=== PATIENT | female | born 1955 | race Caucasian/White ===

== ENCOUNTER 2018-02-12 06:22 | Inpatient (IN) ==
[2018-02-12] MEDS ORDERED: Sodium Chlor 0.9% Inj 250 ML ONE (07:06)
[2018-02-12] MEDS ORDERED: Chlorhexidine Gluconate 2% 1 Pack (2 Cloths) TOPICAL ONE (07:13)
[2018-02-12] MEDS ORDERED: Metoprolol Tartrate 25 MG Tablet PO ONE (07:13)
[2018-02-12] MEDS ORDERED: Sodium Chloride 0.9% 2 ML Flush PRN IV.FLUSH (07:38)
[2018-02-12] MEDS: Sod Chloride 0.9% Inj 1,000 ML IV.SIG SCH ×2 (07:41→17:10)
[2018-02-12] MEDS ORDERED: Thrombin Topical Soln 5,000 UNIT Vial TOPICAL ONE (07:45)
[2018-02-12] MEDS ORDERED: Gelatin Size 100 Topical Foam ONE (07:45)
[2018-02-12] MEDS ORDERED: Bupivacaine/Epinephrine PF Inj 0.5% 30 ML Vial ONE (07:45)
[2018-02-12] MEDS ORDERED: ceFAZolin 1 GM Premix Inj 0 GM/0 ML PIGGYBACK IV.SIG ONE (07:45)
[2018-02-12] MEDS ORDERED: Sodium Chlor 0.9% Inj 500 ML IV.SIG ONE (08:00)
[2018-02-12] MEDS ORDERED: Vancomycin Inj 1,000 MG in Sodium Chlor 0.9% Inj 250 ML IV.SIG SCH (08:00)
[2018-02-12] MEDS ORDERED: Chlorhexidine Gluconate 2% 1 Pack (2 Cloths) TOPICAL SCH (09:00)
[2018-02-12] MEDS ORDERED: Propofol Inj 500 MG/50 ML Vial ONE ×2 (11:31→12:32)
[2018-02-12] MEDS ORDERED: fentaNYL Citrate Inj 250 MCG/5 ML Ampul ONE (11:31)
[2018-02-12] MEDS ORDERED: Clindamycin Inj 600 MG/4 ML Vial ONE (13:14)
[2018-02-12] MEDS ORDERED: Bupivacaine Liposomal PF 1.3% Inj 20 ML Vial ONE (14:27)
[2018-02-12] MEDS ORDERED: Morphine Inj 4 MG/ML Vial IV.PUSH PRN (15:42)
[2018-02-12] MEDS ORDERED: Bisacodyl 10 MG Supp RECTAL PRN (15:42)
[2018-02-12] MEDS ORDERED: HYDROmorphone PCA Inj 6 MG/30 ML PCA.VIAL PCA PRN (15:50)
[2018-02-12] MEDS ORDERED: Naloxone Inj 0.4 MG/ML Vial IV.PUSH PRN (15:50)
[2018-02-12] MEDS ORDERED: Morphine Inj 4 MG/ML Vial ONE ×2 (16:04)
[2018-02-12] MEDS ORDERED: *morphine SULFATE 10 MG/ML PERIprocedure ONLY ONE (16:06)
--- NOTE | 2018-02-12 16:27 | P.CONIM ---
History of Present Illness Primary Care Provider: Brenda Molina MD History of Present Illness: Pt is 62 yo with htn admitted today for L4/5 lami/ fusion with Dr Cornejo. I am seeing pt in [place]. She just recieved dose of morphine and says it is helping. her spb is 97 and she is resting. She had no other complaints and oxygenating well. PMH: htn hyperlipidemia hypothyroidism gerd prediabetes lumbar radiculopathy. hysterectomy abdomen LON shoulder surgery SH; no etoh/tob FH; [place] [facility] Social History Social History Substance History: No History of Abuse Second Hand Smoke Exposure: No Smoking Status: Never smoker How Often Do You Have a Drink Containing Alcohol: Monthly or less Recent Travel in [place] within the Last 8 Weeks: No Recent Out of Country Travel within the Last 8 Weeks: No Medications and Allergies Allergies Allergy/AdvReac Type Severity Reaction Status Date / Time diphenhydramine Allergy Severe Hives Verified 02/12/18 07:10 [From Triaminic Allergy] penicillin G Allergy Severe Hives Verified 02/12/18 07:10 amoxicillin Allergy Hives Verified 02/12/18 07:10 Home Medications Medication Instructions Recorded Confirmed Type cholecalciferol (vitamin D3) 1,000 unit PO DAILY 02/10/18 02/12/18 History [Vitamin D3] hydrochlorothiazide 12.5 mg PO DAILY 02/10/18 02/12/18 History hydrocodone-acetaminophen 1 tab PO Q6H PRN 02/10/18 02/12/18 History lisinopril 20 mg PO DAILY 02/10/18 02/12/18 History simvastatin 20 mg PO QPM 02/10/18 02/12/18 History Active Medications: Active Medications Hydrocodone Bitart/Acetaminophen ([place] 10/325) 1 tab PO Q4H PRN PRN Reason: Pain Scale 1 To 5 Al Hydroxide/Mg Hydroxide (Milk Of Magnesia Liq) 30 ml PO Q12H PRN PRN Reason: Mild Constipation Bisacodyl (Dulcolax Supp) 10 mg RECTAL DAILY PRN PRN Reason: SEVERE CONSITIPATION Chlorhexidine Gluconate (Chlorhexidine 2% Cloth) 1 pack TOPICAL DAILY [facility] Stop: 02/14/18 08:59 Gabapentin (Neurontin) 300 mg PO BID [facility] Hydrochlorothiazide (Microzide) 12.5 mg PO DAILY [facility] Lactated Ringer's (Lr 1000 Ml Inj) 1,000 mls @ 30 mls/hr IV.SIG .Q24H [facility] Stop: 02/13/18 07:14 Last Admin: 02/12/18 07:40 Dose: 30 mls/hr Sodium Chloride (Ns Inj) 500 mls @ 30 mls/hr IV.SIG .Q10H [facility] Stop: 02/13/18 00:39 Sodium Chloride (Ns Inj) 1,000 mls @ 30 mls/hr IV[facility]SIG .Q24H [facility] Last Admin: 02/12/18 07:41 Dose: Not Given Vancomycin HCl 1,000 mg/ (Sodium Chloride) 250 mls @ 250 mls/hr IV.SIG 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 [facility] Stop: 02/15/18 07:59 Last Infusion: 02/12/18 08:40 Dose: Infused Vancomycin HCl 1,000 mg/ (Sodium Chloride) 250 mls @ 250 mls/hr IV.SIG Q12H [facility] Stop: 02/13/18 08:59 Hydromorphone/Sodium Chloride (Dilaudid Floor Director Inj) 6 mg in 30 mls @ 0 mls/hr RAILS DEVELOPER UNSCH PRN PRN Reason: prn pain Lactulose (Lactulose Liq) 30 ml PO DAILY PRN PRN Reason: SEVERE CONSITIPATION Lisinopril (Prinivil) 20 mg PO DAILY [facility] Morphine Sulfate (Morphine Inj) 2 mg IV.PUSH Q2H PRN PRN Reason: Pain Scale 1 to 6 Naloxone HCl (Narcan Inj) 0.4 mg IV.PUSH PRN PRN PRN Reason: SEE LABEL COMMENTS Pravastatin Sodium (Pravachol) 40 mg PO DAILY@1800 [facility] Senna/Docusate Sodium (Sania-Colace) 1 tab PO BID [facility] Sennosides (Senokot) 17.2 mg PO Q12H PRN PRN Reason: Moderate Constipation Sodium Chloride (Ns Flush) 2 ml IV.FLUSH BID [facility] Sodium Chloride (Ns Flush) 2 ml IV.FLUSH PRN PRN PRN Reason: FLUSH AFTER USING IV ACCESS Vitamin D (Vitamin D3) 1,000 unit PO DAILY [facility] Physical Exam Vital signs: Last Vital Signs Temp 98.4 F 02/12/18 07:13 Pulse 82 02/12/18 07:13 Resp 16 02/12/18 07:13 BP 120/74 02/12/18 07:13 Pulse Ox 97 02/12/18 07:13 Narrative: awakens. sleepy. oriented. following commands heart reg lung cta abd s/nt ext no edema lumbar bandage with candice drain pope cath. Assessment and Plan Assessment (1) Status post lumbar surgery: Code(s): Z98.890 - Other specified postprocedural states Status: Acute Plan 1. s/p L4/5 Lami/fusion 02/12 2. htn 3. hyperlipidemia discussed with Dr Clemente faustin dc Thursday dvt prophylaxis prn pain control PT daily hold bp meds as needed will follow over the weekend.
--- NOTE | 2018-02-12 16:34 | XR ---
EXAM DATE: 02/12/2018 4:30 PM EST AGE/SEX: 62 years / Female INDICATIONS: Fusion L4,L5 with screws and rods. CLINICAL DATA: This is the patient's initial encounter. Patient reports that signs and symptoms have been present for 1 day and indicates a pain score of Nonresponsive. MEDICAL/SURGICAL HISTORY: None. None. COMPARISON: No prior exams available for comparison. FINDINGS: Patient is status post lumbar spinal surgery with fusion L4-5. There is good position and alignment o f the lower lumbar spine and fusion. The hardware is grossly intact. CONCLUSION: Good position and alignment on this postoperative study. Electronically signed by: Kobi Ibarra MD Board Certified Radiologist 02/12/2018 4:33 PM EST
[2018-02-12] MEDS ORDERED: *morphine SULFATE 4 MG/ML PERIprocedure ONLY ONE (16:36)
[2018-02-12] MEDS: Sodium Chloride 0.9% 2 ML Flush BID IV.FLUSH SCH ×2 (19:50→21:05)
[2018-02-12] MEDS ORDERED: Influenza (Quadrivalent) Vaccine 0.5 ML Syringe IM ONE (20:00)
[2018-02-12] MEDS: Gabapentin 300 MG Capsule PO SCH (20:49)
[2018-02-12] MEDS: Senna/Docusate Sodium 8.6/50 MG Tablet PO SCH (20:49)
[2018-02-12] MEDS: Vancomycin Inj 1,000 MG in Sodium Chlor 0.9% Inj 250 ML IV.SIG SCH (20:51)
[2018-02-13 06:04] LABS: Baso % (Auto) 0.1 % (0.0-2.0); Hematocrit 34.9 % (35.0-46.0); Lymph # (Auto) 0.8 th/mm3 (1.0-4.8); Mean Corpuscular HGB Conc 34.3 % (32.0-36.0); Mean Corpuscular Hemoglobin 30.4 pg (27.0-34.0); Mean Corpuscular Volume 88.6 fL (80.0-100.0); Mean Platelet Volume 7.9 fL (7.0-11.0); Mono # (Auto) 1.2 th/mm3 (0.0-0.9); Mono % (Auto) 11.3 % (0.0-8.0); Neut # (Auto) 8.7 th/mm3 (1.8-7.7); Neut % (Auto) 81.6 % (16.0-70.0); Platelet Count 261 th/mm3 (150-450); Red Blood Count 3.95 mil/mm3 (4.00-5.30); Red Cell Distribution Width 13.1 % (11.6-17.2); White Blood Count 10.7 th/mm3 (4.0-11.0)
[2018-02-13 06:29] LABS: Calcium 8.4 mg/dL (8.5-10.1); Potassium 4.3 meq/L (3.5-5.1)
[2018-02-13] MEDS: Sod Chloride 0.9% Inj 1,000 ML IV.SIG SCH ×2 (07:30→14:18)
[2018-02-13] MEDS: Vancomycin Inj 1,000 MG in Sodium Chlor 0.9% Inj 250 ML IV.SIG SCH (08:00)
[2018-02-13] MEDS: Lisinopril 20 MG Tablet PO SCH (09:00)
[2018-02-13] MEDS: Sodium Chloride 0.9% 2 ML Flush BID IV.FLUSH SCH ×2 (09:00→20:53)
[2018-02-13] MEDS: Senna/Docusate Sodium 8.6/50 MG Tablet PO SCH ×2 (09:00→20:52)
[2018-02-13] MEDS: Gabapentin 300 MG Capsule PO SCH ×2 (09:00→20:53)
--- NOTE | 2018-02-13 12:04 | P.PNIM ---
Subjective Interval history: doing well. Physical Exam Vital signs: Last Vital Signs Temp 98.5 F 02/13/18 08:00 Pulse 102 H 02/13/18 08:00 Resp 14 02/13/18 08:00 BP 108/79 02/13/18 08:00 Pulse Ox 98 02/13/18 08:00 Narrative: doing well heart reg lung cta abd s/nt ext no edema candice drain lumbar Results Labs CBC & Chem 7: 02/13/18 05:23 02/13/18 05:23 Assessment and Plan Assessment (1) Status post lumbar surgery: Code(s): Z98.890 - Other specified postprocedural states Status: Acute Plan 1. s/p L4/5 Lami/fusion 02/12 2. htn 3. hyperlipidemia discussed with Dr Clemente faustin dc Thursday dvt prophylaxis prn pain control PT daily hold bp meds as needed. discussed with RN will follow over the weekend. Progress Note: Quality VTE Deep Vein Thrombosis/Pulmonary Embolism Present on Admission: No
--- NOTE | 2018-02-13 13:14 | P.PNNS ---
Subjective Interval history: February 13, 2018 The patient has remained stable overnight. She complains of incisional back pain as expected. Physical Exam Vital signs: Vital Signs 02/12/18 15:53 02/12/18 16:00 02/12/18 16:03 Temperature 98.1 F Pulse Rate 88 86 87 Respiratory Rate 14 15 16 Blood Pressure 125/64 98/58 L Pulse Oximetry 100 99 100 02/12/18 16:05 02/12/18 16:15 02/12/18 16:30 Temperature Pulse Rate 83 89 93 H Respiratory Rate 10 L 13 13 Blood Pressure 97/52 L 110/63 124/65 Pulse Oximetry 100 100 100 02/12/18 16:45 02/12/18 16:50 02/12/18 17:00 Temperature Pulse Rate 96 H 101 H Respiratory Rate 13 16 Blood Pressure 121/68 Pulse Oximetry 100 99 97 02/12/18 17:08 02/12/18 17:15 02/12/18 17:30 Temperature 97.7 F Pulse Rate 93 H 92 H 95 H Respiratory Rate 15 12 14 Blood Pressure 128/94 H 126/91 H Pulse Oximetry 98 96 02/12/18 17:55 02/12/18 20:00 02/12/18 21:15 Temperature 97.9 F 97.9 F Pulse Rate 100 H 110 H Respiratory Rate 16 17 13 Blood Pressure 140/64 121/66 Pulse Oximetry 95 95 02/12/18 23:59 02/13/18 03:42 02/13/18 08:00 Temperature 98.0 F 98.1 F 98.5 F Pulse Rate 107 H 113 H 102 H Respiratory Rate 16 17 14 Blood Pressure 117/68 94/56 L 108/79 Pulse Oximetry 96 97 98 Intake & Output 02/12/18 02/13/18 02/13/18 18:59 06:59 18:59 Intake Total 1750 / 1750 730 / 730 Output Total 650 / 650 460 / 460 30 / 30 Balance 1100 / 1100 270 / 270 -30 / -30 Weight 64 kg 63.6 kg Intake: IV 250 / 250 250 / 250 Vancomycin Inj 1,000 MG In NS 250 / 250 250 / 250 Inj 250 ML @ 250 mls/hr IV.SIG Q12H [facility] Rx#:[id number] Oral 480 / 480 Anesthesia Amount 1500 / 1500 Output: Urine 450 / 450 Estimated Blood Loss 200 / 200 Urine Amount (Catheter) 420 / 420 Indwelling Urethral Catheter 420 / 420 Wound Drainage # 1 Back Dionicio Other: # Voids 2 Date of Last Bowel Movement 02/11/18 02/11/18 02/11/18 # Bowel Movements 0 Weight On Admission 64 kg - Routine Neurological Exam February 13, 2018 The patient is lying in bed as I enter the room. She is in no acute distress. Her sits next to her. On neurological examination, mental status testing finds her to be awake and alert. She is oriented by 3. Cognitive functions grossly intact. Her speech is fluent. Cranial nerve testing 2 through 12 is grossly intact. There were no focal motor nor sensory deficits. Wound was clear. She is ambulatory and continent. - Urinary Catheter Management Indwelling Urethral Catheter Cath placed during this visit: yes, but has since been removed by the nurse Reason for continuing: Not indwelling catheter Insertion date: 02/12/18 Insertion time: 11:55 Removal date: 02/12/18 Removal time: 18:15 Assessment and Plan - Plan February 13, 2018 The patient is stable postoperative day #1 status post TLIF at L4-L5. She requires mobilization with physical therapy and to be weaned off parenteral narcotic analgesics. She probably will be able to be discharged tomorrow. I will continue the present management. Neurosurgery will follow.
--- NOTE | 2018-02-13 15:43 | P.OP ---
Preoperative Diagnosis: L4-5 spondylolisthesis Postoperative Diagnosis: L4-5 spondylolisthesis Date of procedure: 02/12/18 Procedure: L4-L5 laminectomy, interbody arthrodesis using PEEK cage and autologous bone graft, L4-L5 instrumental fixation using transpedicular screws and rods, L4-L5 counselor/art therapist lateral fusion using autologous bone graft and demineralized bone matrix. Microsurgical dissection Anesthesia: VINAY Surgeon: Carloz Cornejo MD Manufacturing Weaver: Mell Monzon Pathology: none sent Operation and Findings: INDICATIONS FOR THE SURGICAL PROCEDURE Ms Hidalgo is a 62 year-old female who presented with intractable mechanical back pain and loi evidence of lower extremity radiculopathy. The patient has failed maximum nonsurgical management including multiple modalities of conservative treatment as well as pain management interventions by an interventional pain specialist. A surgical decompression and arthrodesis were indicated as a last resort. The [id number] details of the procedure, indications, alternatives, risks and potential complications were fully discussed with the patient. The patient fully understood. All the questions were answered. No guarantees were given. The patient voiced requesting the procedure and provided informed consents. The patient was offered the alternative of delaying the procedure and continuing with nonsurgical management. DETAILS OF THE SURGICAL PROCEDURE Prior to the procedure, the surgical incision was marked in the preoperative surgical holding room, and the procedure, risks, and potential complications revisited with the patient. Placement of electrodes for intraoperative neurophysiological monitoring was completed. The patient was taken to the operative room, and following induction of general anesthesia, endotracheal intubation was performed. A Bain catheter, bilateral MARIA ISABEL hose and sequential compression devices were placed and kept throughout the procedure. The patient was positioned prone, over a Warren table over a bolsters. All pressure in the preoperative surgical holding room points were carefully padded with eggcrate and gel mattress. The eyes were tapped shut after ointment was applied by the anesthesiologist to prevent corneal abrasion. A La hugger was placed over the expossed lower body to maintain control of the core body temperature. The electrophysiological team placed the needles and electrodes in their proper location and baseline SSEP's and EMG potentials were registered. The entrance to each pedicles was marked using a C arm. The lumbar region was prepped and draped in the usual sterile fashion. The surgical procedure was performed in several steps as follow: SURGICAL APPROACH Once the patient was positioned, a localizing cross-table lateral x-ray was performed with a C-arm. Two paramedian small incisions were outlined on the skin approximately 3cm from the midline. The skin incisions were made with a # 10 blade. Small bleeders were controlled with the cautery. The dissection was then carried out into deper planes and through the thoracolumbar fascia with a Bovie. The intermuscular septum was identified and the myscles were blunted dissected along the septum. The facets and transverse process of L4 and L5 were exposed and the proper anatomical landmarks were identidied. A microsurgical self-retaining retractor was placed on the incision, and a localizing lateralizing cross-table x-ray was performed with an instrument underneath a lamina of the lumbar spine. INSTRUMENTAL FIXATION At this point in the procedure, placement of bilateral transpedicular screws was necessary for stabilization of the spine. Initially, the entry point for the screw was selected anatomically at the junction of the facet, with the transverse process, and the pars interarticularis at L4 and L5. This was started with a Giamshetti needle followed by the use of a yo wire. A tap was used to create the threads for the screws. Finally bilateral transpedicular screws were carefully placed bilaterally at L4, and L5 under fluoroscopic visualization. An appropriate purchase was achieved with all screws. The position of each screw was assessed anatomically with an AP, lateral , oblique Xrays. An intraoperative scan view of the spine was then performed using the iso-centric c-arm. Each screw was then assessed electrophysiologically stimulating each screw with a nerve stimulator. SURGICAL DECOMPRESSION There was significant mass effect with compression of the neural structures. In order to relieve neural compression, it was necessary to perform a decompressive laminectomy, with decompression of the spinal canal and bilateral lateral recesses. Note that the scope of such decompression was significantly more extensive than the minimal exposure necessary to perform an interbody fusion, as there was extreme facet arthropathy with near complete collapse of the disk spaces and severe stenosis cause by the hyperthrophic joint facets. At this point of the procedure the operative microscope was draped in the usual sterile fashion and brought to the field. The rest of the surgical procedure was performed using microdissection technique with the exception of the closure. Under the operating microscope, a decompressive laminectomy was carried out at L4-L5 as follow: The laminae, base of the spinous processes and facets were carefully drilled exposing the ligamentum flavum. The facets were abnormal with severe spondylolisthesis and gross mechanical instability. A large disk protusion was compressing the neural structures and exiting nerve roots. A near complete facetectomy was necessary resulting in further mechanical instability. The ligamentum flavum appeared hypertrophic, resulting on mass effect on the dorsal surface of the neural structures. The superior free border of the ligamentum flavum was elevated with a ligament dissector and the ligamentum flavum was removed with a 3 and 4 mm Kerrison forceps. The ligament was very adherent to the dural sac and during the dissection, and extreme care was taken during the dissection. The exiting nerve roots were identified, and a wide foraminotomy was performed with a Kerrison in their trajectory towards the neural foramen. Epidural veins located laterally to the dural sac were coagulated with the bipolar cautery, and then incised using microscissors. Gentle medial retraction of the dural sac allowed me to expose the disc space for the discectomy. Upon completion of the discectomy, an excellent decompression of the neural structures was achieved. Increased motion was noted thorough the procedure, which was consistent with mechanical instability. INTERBODY ARTHRODHESIS In order to correct the narrowing of the disk space and maintain distraction of the space, and to achieve a solid interbody fusion, it was necessary the insertion of an interbody device into the disk space. Otherwise, the disk space would collapse, compromising the result of the surgical procedure. At this point of the procedure, the annulus fibrosus of the disk was carefully coagulated with a bipolar cautery and incised using an 11 bladed knife. Then, a microdiscectomy was carried out in a standard fashion using a combination of straight and up-biting pituitary forceps. A reverse angle curette was applied underneath the posterior longitudinal ligament, and used to push the disk fragments into the disk space, so they can be safely removed with a pituitary forceps. Once the discectomy was completed, it was necessary to decorticate the endplates, in order to eliminate the cartilaginous endplate and to expose healthy bone appropriate to perform the interbody fusion. The endplates at L4- L5 were then thoroughly decorticated using increasing size bone lacy and ring curets, eliminating the cartilaginous fragments from both, the superior and inferior endplates. A disk space distractor was applied to the pedicle screws and gentle distraction was applied. This maneuver was assisted by the use of a disk distractor. Increased motility was noted at the disk, which was consistent with instability due to facet arthropathy. Once a thorough preparation of the disk space was achieved, the disk space was irrigated with antibiotic solution, and the interbody fusion was performed by carefully impacting an expandable PPEK cage filled with autologous iliac crest bone graft. The cage was cartefully expanded. A solid position of the cage with good purchase was achieved. The position of the cage was assessed anatomically with a probe and radiologically with the C-arm. POSTEROLATERAL FUSION The posterolateral fusion is a critical component to the procedure, to prevent future fatigue and failure of the instrumental fixation. Initially, the transverse processes of the vertebral bodies, lateral surface of the facets and the lateral gutters of the spine were carefully cleaned, eliminating all soft tissue and muscle attachments. The area was then irrigated with a large amount of antibiotic solution. Subsequently, the transverse processes, lateral surface of the facets, and lateral gutters of the spine were thoroughly decorticated using the TPS drill with a 5mm cutting marah, exposing cancellous bone, in preparation for the posterolateral fusion. The incision was again irrigated with antibiotic solution. Then, the posterolateral fusion was then performed by carefully packing the lateral gutters of the spine at L4-L5 with autologous iliac crest bone combined with demineralized bone matrix. I packed as much bone as possible. COMPLETION OF THE INSTRUMENTATION AND CLOSURE The rods were brought to the field, applied to all the screws, and the screw caps were sequentially applied. Compression was performed between the pedicle screws, and final tightening of the screws was completed using a torque wrench. The incision was again thoroughly irrigated with several liters of antibiotic solution, and hemostasis secured with the bipolar cautery. A Valsalva Maneuver performed by the anesthesiologist failed to show any evidence of cerebrospinal fluid leak or bleeding. A 7 mm Warren-Salcedo drain was left in the epidural space and externalized through a separate stab incision. The incision was then closed in planes. 0 Vicryl was used in an interrupted fashion to close the thoracolumbar fascia and the superficial fascia. The subcutaneous tissue was then approximated using 3-0 Vicryl in an interrupted fashion. Special care was taken to avoid space. The skin was then closed with 4-0 Vicryl in a running, subcuticular fashion. Dermabond was applied to the skin. Each plane of closure was irrigated with antibiotic solution. At the end of the procedure the sponge, needle and instrument counts were all correct. Estimated blood loss was 250 cc. No blood transfusion was given. The entire procedure was performed using continuous electrophysiological monitoring of the somatosensorial evoked potentials and EMG. The patient received prophylactic antibiotics. The patient was then extubated and transferred to the recovery room in stable condition.
[2018-02-14] MEDS: Sod Chloride 0.9% Inj 1,000 ML IV.SIG SCH ×2 (07:44→09:30)
[2018-02-14] MEDS: Sodium Chloride 0.9% 2 ML Flush BID IV.FLUSH SCH ×2 (08:48→21:57)
[2018-02-14] MEDS: Senna/Docusate Sodium 8.6/50 MG Tablet PO SCH ×2 (08:48→21:50)
[2018-02-14] MEDS: Gabapentin 300 MG Capsule PO SCH ×2 (08:48→21:50)
[2018-02-14] MEDS: Lisinopril 20 MG Tablet PO SCH (08:48)
--- NOTE | 2018-02-14 13:57 | P.PNNEU ---
Subjective Active Medications: Active Medications Hydrocodone Bitart/Acetaminophen ([place] 10/325) 1 tab PO Q4H PRN PRN Reason: Pain Scale 1 To 5 Al Hydroxide/Mg Hydroxide (Milk Of Magnesia Liq) 30 ml PO Q12H PRN PRN Reason: Mild Constipation Bisacodyl (Dulcolax Supp) 10 mg RECTAL DAILY PRN PRN Reason: SEVERE CONSITIPATION Gabapentin (Neurontin) 300 mg PO BID [facility] Last Admin: 02/14/18 08:48 Dose: 300 mg Hydrochlorothiazide (Microzide) 12.5 mg PO DAILY [facility] Last Admin: 02/14/18 08:48 Dose: 12.5 mg Sodium Chloride (Ns Inj) 1,000 mls @ 30 mls/hr IV.SIG .Q24H [facility] Last Admin: 02/14/18 07:44 Dose: Not Given Vancomycin HCl 1,000 mg/ (Sodium Chloride) 250 mls @ 250 mls/hr IV.SIG SALES ROUTE DRIVER [facility] Stop: 02/15/18 07:59 Last Infusion: 02/12/18 08:40 Dose: Infused Hydromorphone/Sodium Chloride (Dilaudid University Professor Inj) 6 mg in 30 mls @ 0 mls/hr AUTO DAMAGE TRAINEE UNSCH PRN PRN Reason: prn pain Last Admin: 02/12/18 16:51 Dose: 0 mls/hr Sodium Chloride (Ns Inj) 1,000 mls @ 50 mls/hr IV.SIG .Q20H [facility] Last Admin: 02/14/18 09:30 Dose: Not Given Lactulose (Lactulose Liq) 30 ml PO DAILY PRN PRN Reason: SEVERE CONSITIPATION Lisinopril (Prinivil) 20 mg PO DAILY [facility] Last Admin: 02/14/18 08:48 Dose: 20 mg Morphine Sulfate (Morphine Inj) 2 mg IV.PUSH Q2H PRN PRN Reason: Pain Scale 1 to 6 Naloxone HCl (Narcan Inj) 0.4 mg IV.PUSH PRN PRN PRN Reason: SEE LABEL COMMENTS Pravastatin Sodium (Pravachol) 40 mg PO DAILY@1800 [facility] Last Admin: 02/13/18 17:47 Dose: Not Given Senna/Docusate Sodium (Sania-Colace) 1 tab PO BID [facility] Last Admin: 02/14/18 08:48 Dose: 1 tab Sennosides (Senokot) 17.2 mg PO Q12H PRN PRN Reason: Moderate Constipation Sodium Chloride (Ns Flush) 2 ml IV.FLUSH BID [facility] Last Admin: 02/14/18 08:48 Dose: 2 ml Sodium Chloride (Ns Flush) 2 ml IV.FLUSH PRN PRN PRN Reason: FLUSH AFTER USING IV ACCESS Vitamin D (Vitamin D3) 1,000 unit PO DAILY [facility] Last Admin: 02/14/18 08:48 Dose: 1,000 unit Allergies/Adverse Reactions: Allergies Allergy/AdvReac Type Severity Reaction Status Date / Time diphenhydramine Allergy Severe Hives Verified 02/12/18 07:10 [From Triaminic Allergy] penicillin G Allergy Severe Hives Verified 02/12/18 07:10 amoxicillin Allergy Hives Verified 02/12/18 07:10 Physical Exam Vital signs: Vital Signs 02/13/18 16:00 02/13/18 19:13 02/14/18 00:44 Temperature 100.3 F H 98.7 F 98.8 F Pulse Rate 102 H 110 H 106 H Respiratory Rate 16 16 18 Blood Pressure 119/68 129/70 131/71 Pulse Oximetry 98 97 98 02/14/18 04:06 02/14/18 08:00 02/14/18 12:00 Temperature 98.0 F 99.8 F H 100.4 F H Pulse Rate 104 H 105 H 100 H Respiratory Rate 18 16 16 Blood Pressure 150/80 H 125/58 L 133/81 Pulse Oximetry 97 97 99 Intake & Output 02/13/18 02/14/18 02/14/18 18:59 06:59 18:59 Intake Total 1360 / 1360 1080 / 1080 Output Total 71 / 71 Balance 1289 / 1289 1080 / 1080 Weight 63.6 kg Intake: IV 1000 / 1000 NS Inj 1,000 ML @ 50 mls/hr IV. 1000 / 1000 SIG .Q20H [facility] Rx#:[id number] Oral 360 / 360 1080 / 1080 Output: Stool 1 / 1 Wound Drainage 70 / 70 # 1 Back Dionicio 70 / 70 Other: # Voids 5 3 Date of Last Bowel Movement 02/11/18 02/11/18 # Bowel Movements 0 - Urinary Catheter Management Indwelling Urethral Catheter Cath placed during this visit: yes, but has since been removed by the nurse Reason for continuing: Not indwelling catheter Insertion date: 02/12/18 Insertion time: 11:55 Removal date: 02/12/18 Removal time: 18:15
--- NOTE | 2018-02-14 14:03 | P.PNNS ---
Subjective Interval history: February 14, 2018 The patient has remained stable overnight. She is complaining of a headache. She feels this may be related to the narcotics she is taking. Physical Exam Vital signs: Vital Signs 02/13/18 16:00 02/13/18 19:13 02/14/18 00:44 Temperature 100.3 F H 98.7 F 98.8 F Pulse Rate 102 H 110 H 106 H Respiratory Rate 16 16 18 Blood Pressure 119/68 129/70 131/71 Pulse Oximetry 98 97 98 02/14/18 04:06 02/14/18 08:00 02/14/18 12:00 Temperature 98.0 F 99.8 F H 100.4 F H Pulse Rate 104 H 105 H 100 H Respiratory Rate 18 16 16 Blood Pressure 150/80 H 125/58 L 133/81 Pulse Oximetry 97 97 99 Intake & Output 02/13/18 02/14/18 02/14/18 18:59 06:59 18:59 Intake Total 1360 / 1360 1080 / 1080 Output Total 71 / 71 Balance 1289 / 1289 1080 / 1080 Weight 63.6 kg Intake: IV 1000 / 1000 NS Inj 1,000 ML @ 50 mls/hr IV. 1000 / 1000 SIG .Q20H STU Rx#:[id number] Oral 360 / 360 1080 / 1080 Output: Stool / Wound Drainage 70 / 70 # 1 Back Dionicio 70 / 70 Other: # Voids 5 3 Date of Last Bowel Movement 02/11/18 02/11/18 # Bowel Movements 0 - Routine Neurological Exam February 14, 2018 Patient is kneeling in bed as I enter the room. She is in no acute distress. Her stands next to her. Mental status testing finds her to be awake and alert. She is oriented by 3. Cognitive functions grossly intact. Her speech is fluent. Cranial nerve testing 2 through 12 is grossly intact. There were no focal motor nor sensory deficits. Patient is ambulatory and continent the dressing is dry and intact but there is some sanguinous drainage. The JORGE drain is in place and the patient is drained over 70 cc over 24 hours. - Urinary Catheter Management Indwelling Urethral Catheter Cath placed during this visit: yes, but has since been removed by the nurse Reason for continuing: Not indwelling catheter Insertion date: 02/12/18 Insertion time: 11:55 Removal date: 02/12/18 Removal time: 18:15 Assessment and Plan - Plan February 13, 2018 The patient is stable postoperative day #1 status post TLIF at L4-L5. She requires mobilization with physical therapy and to be weaned off parenteral narcotic analgesics. She probably will be able to be discharged tomorrow. I will continue the present management. Neurosurgery will follow. February 14, 2018 The patient remained stable postoperative day #2 status post TLIF at L4-L5. He needs to ambulate in the lazo. I will hold today's discharge due to the fact that the JORGE drain remains quite productive. I am reticent to discontinue the JORGE drain as of yet. Hopefully can discontinue tomorrow the patient will be discharged. Neurosurgery will follow, and Dr. Cornejo should return tomorrow to follow the patient.
[2018-02-15] MEDS: Sod Chloride 0.9% Inj 1,000 ML IV.SIG SCH ×2 (06:11→07:20)
[2018-02-15 07:03] VITALS: RESP 16
[2018-02-15] MEDS: Sodium Chloride 0.9% 2 ML Flush BID IV.FLUSH SCH (08:25)
[2018-02-15] MEDS: Gabapentin 300 MG Capsule PO SCH (08:25)
[2018-02-15] MEDS: Lisinopril 20 MG Tablet PO SCH (08:25)
[2018-02-15] MEDS: Senna/Docusate Sodium 8.6/50 MG Tablet PO SCH (08:27)
[2018-02-15 10:04] VITALS: BP 112/63; PULSE 99; TEMP 98.7; O2SAT 98
--- NOTE | 2018-02-17 09:54 | P.DS ---
Date of admission: 02/12/18 15:52 Primary care physician: Brenda Molina MD Brief History from admission: Ms Hidalgo is a 62 year-old female who presented with intractable mechanical back pain and loi evidence of lower extremity radiculopathy. The patient has failed maximum nonsurgical management including multiple modalities of conservative treatment as well as pain management interventions by an interventional pain specialist. A surgical decompression and arthrodesis were indicated as a last resort. DS: Medications - Discharge Medications Prescriptions: gabapentin [Neurontin] 300 mg PO BID #60 cap hydrocodone-acetaminophen 1 tab PO Q4-6H PRN 7 Days #28 tab PRN Reason: Pain Scale 1 To 5 hydrocodone-acetaminophen 1 tab PO Q6H PRN #12 tab PRN Reason: Pain DS: Summary Hospital Course: Ms. Hidalgo underwent a L4-L5 laminectomy, interbody arthrodesis using PEEK cage and autologous bone graft, L4-L5 instrumental fixation using transpedicular screws and rods, L4-L5 retail sales teammate lateral fusion using autologous bone graft and demineralized bone matrix. Microsurgical dissection for L4-5 spondylolisthesis on 02/12/18. She was discharged in stable conditions. - Time Spent with Patient Total time spent providing and/or coordinating discharge services: Less than 30 minutes - Quality: VTE Deep Vein Thrombosis/Pulmonary Embolism Present on Admission: No Results Procedures completed during hospitalization: L4-L5 laminectomy, interbody arthrodesis using PEEK cage and autologous bone graft, L4-L5 instrumental fixation using transpedicular screws and rods, L4-L5 retail sales teammate lateral fusion using autologous bone graft and demineralized bone matrix. Microsurgical dissection - Impressions ITS Impressions Lumbar Spine X-Ray 02/12/18 00:00 CONCLUSION: Good position and alignment on this postoperative study. Discharge Plan - Discharge Disposition Patient Disposition: Discharge Home - Discharge Condition Condition: Good - Discharge Order Discharge Orders: Discharge Order (Routine); Ordered 02/15/18 Ordered By: Michael Beltran - Physicians Team Primary Care Provider: Brenda Molina Attending Provider: Carloz Cornejo Other Providers: Matthew Palmer MD - Rxs /Orders / Referrals /Forms Prescriptions: New gabapentin [Neurontin] 300 mg Capsule 300 mg PO BID Qty: 60 RF: 0 hydrocodone-acetaminophen 10-325 mg Tablet 1 tab PO Q4-6H PRN (Reason: Pain Scale 1 To 5) 7 Days Qty: 28 RF: 0 hydrocodone-acetaminophen 7.5-325 mg Tablet 1 tab PO Q6H PRN (Reason: Pain) Qty: 12 Continue cholecalciferol (vitamin D3) [Vitamin D3] 1,000 unit Tablet 1,000 unit PO DAILY hydrochlorothiazide 12.5 mg Capsule 12.5 mg PO DAILY lisinopril 20 mg Tablet 20 mg PO DAILY simvastatin 20 mg Tablet 20 mg PO QPM Referrals: Brenda Molina MD [Primary Care Provider] - See Instructions - Discharge Instructions Patient Printed Instructions: Hydrocodone/Acetaminophen (By mouth), Laxative, Stool Softeners (By mouth), Gabapentin (By mouth), Laminectomy (DC), Back Pain ( ED), Fall Prevention (ED), Lumbar Brace (GEN) Additional Instructions: PRESCRIPTIONS PROVIDED AT TIME OF DISCHARGE. FOLLOW UP WITH DR. CORNEJO WITHIN 1-2 WEEKS. PLEASE CALL TO SCHEDULE APPOINTMENT. NOTIFY SURGEON IF ANY INCREASED BLEEDING, REDNESS, DRAINAGE, SWELLING, OR FEVER OCCURS. DO NOT SOAK SURGICAL WOUND. MAY SHOWER, NO BATH OR SWIMMING. YOU MAY CONTINUE TO COVER YOUR SURGICAL WOUND WITH A DRY, STERILE DRESSING. CONTINUE TO WEAR YOUR LUMBAR BRACE WHEN OUT OF BED/WALKING. YOU DO NOT HAVE TO WEAR IT WHILE IN BED. - Post Discharge Care Plan Care Plan Goals: Your Health Problems: LAMINECTOMY Goals to Promote Your Health: * To prevent worsening of your condition * To maintain your health at the optimal level Directions to Meet Your Goals: * Take your medications as prescribed * Follow your dietary instruction * Follow activity as directed * Keep your appointments as scheduled * Take your immunizations and boosters as scheduled * If your symptoms worsen call your PCP * If no PCP go to Urgent Care or Emergency Room Smoking is dangerous to your health. Avoid second hand smoke. You may reach the 24-hour crisis hotline for domestic abuse at .
== END 2018-02-15 13:19 | disposition home or self-care (01) | DRG 455 ==
LOC: HSDC 06:22 → EDSTATUS 13:00 → HSDI 15:52 → N06 17:56
PROVIDERS: ADMIT Neurological Surgery; ATTEND Neurological Surgery
DX: E78.5 Hyperlipidemia, unspecified; I10 Essential (primary) hypertension; Z90.710 Acquired absence of both cervix and uterus; K21.9 Gastro-esophageal reflux disease without esophagitis; M43.16 Spondylolisthesis, lumbar region; R51 Headache; Z23 Encounter for immunization; Z79.899 Other long term (current) drug therapy; R73.03 Prediabetes; E03.9 Hypothyroidism, unspecified; M54.16 Radiculopathy, lumbar region
CPT/HCPCS: 72100; 76000; 80048; 85025; 85730; 86850; 86900; 86901; 87640; 87641; 90471; 90658; 90686; 94150; C1713; C9290; G0008; J0131; J0690; J1170; J1580; J2270; J2704; J3010; J3370; J7030; J7050; J7120; L0484; L0560; L0565; Q2038